=== PATIENT | female | born 1930 | race Caucasian/White ===

== ENCOUNTER 2017-12-06 09:06 | Outpatient (CLI) | payer MEDICARE | END 2017-12-06 09:07 | disposition home or self-care (01) | LOC: BICMAMMO 09:06 | PROVIDERS: ATTEND Obstetrics & Gynecology | DX: Z12.31 Encounter for screening mammogram for malignant neoplasm of breast (principal); Z80.3 Family history of malignant neoplasm of breast | CPT/HCPCS: 77063; 77067 ==

== ENCOUNTER 2019-01-15 21:51 | Emergency (ER) | payer MEDICARE ==
[2019-01-15] MEDS ORDERED: hydrALAZINE 20 MG/ML VIAL ONE (23:24)
[2019-01-15] MEDS ORDERED: Ondansetron PF 4 MG/2 ML Vial ONE (23:44)
== END 2019-01-16 00:05 | disposition home or self-care (01) ==
LOC: ERS 21:51
DX: I10 Essential (primary) hypertension (principal); E03.9 Hypothyroidism, unspecified; F41.9 Anxiety disorder, unspecified
CPT/HCPCS: 96374; 96375; J0360; J2405

== ENCOUNTER 2019-02-02 09:13 | Observation (INO) | payer MEDICARE ==
--- NOTE | 2019-02-02 09:51 | RAD ---
Exam: Chest one view HISTORY:Tachycardia Comparison: None FINDINGS: Lungs: No masses or consolidation. Cardiac silhouette:Accentuated by portable technique Pulmonary vessels: Normal Pleural Spaces: Clear Pneumothorax: None Osseous abnormalities: None of acuity. IMPRESSION: No focal consolidation.
[2019-02-02 09:52] LABS: #Basophils 0.1 thou/uL (0.0-0.2); #Eosinphils 0.1 thou/uL (0.0-0.7); #Monocytes 0.5 thou/uL (0.11-0.59); #Neutrophils 4.7 thou/uL (1.40-6.50); %Eosinophils 1.8 % (0.0-10.0); %Lymphocytes 16.1 % (21.0-51.0); %Monocytes 8.1 % (0.0-10.0); Hemoglobin 14.2 g/dL (12.0-16.0); Mean Corpuscular HGB CONC 32.6 g/dL (32.0-36.0); Mean Platelet Volume 7.6 fL (7.4-10.4); Platelet Count 251 thou/uL (130-400); RBC Distribution Width 12.7 % (11.5-14.5); Red Blood Cell (RBC) Count 4.58 mill/uL (4.20-5.40); White Blood Cell (WBC) Count 6.4 thou/uL (4.8-10.8)
[2019-02-02 10:09] LABS: ALT (SGPT) 31 U/L (8-55); AST (SGOT) 26 U/L (5-34); Albumin 4.3 g/dL (3.4-4.8); Alkaline Phosphatase 77 U/L (40-150); Anion Gap 13 mmol/L (10-20); BUN (Urea Nitrogen) 11 mg/dL (9.8-20.1); Bilirubin, Total 1.4 mg/dL (0.2-1.2); CK (CPK) 78 U/L (29-168); Calc. Creatinine Clearance 0 mL/min (70-130); Calcium 9.4 mg/dL (7.8-10.44); Carbon Dioxide 26 mmol/L (23-31); Chloride 102 mmol/L (98-107); Estimated GFR-MDRD 64; Glucose 101 mg/dL (83-110); Potassium 3.7 mmol/L (3.5-5.1); Protein, Total 7.3 g/dL (6.0-8.3); Sodium 137 mmol/L (136-145)
[2019-02-02] MEDS ORDERED: Aspirin Chewable 81 MG TAB ONE (11:01)
[2019-02-02] MEDS ORDERED: Nitroglycerin 2% Ointment 1 INCH/1 GM Packet ONE (11:01)
[2019-02-02] MEDS ORDERED: Nitroglycerin 0.4 MG TAB (25 Tab Bottle) PO PRN (11:27)
--- NOTE | 2019-02-02 12:14 | HP ---
PRIMARY CARE PROVIDER: Dr. Almita Cole. CHIEF COMPLAINT: "Heart pounding." HISTORY OF PRESENT ILLNESS: Ms. Barakat is a pleasant 88-year-old lady, who was seen at [facility] on February 02, 2019. She reports that over the last one month she has had elevated blood pressure. Her blood pressure medications were being adjusted, but her blood pressure continued to be high. She came to the emergency room on January 15, 2019, because of elevated blood pressure. At that time, she received intravenous hydralazine and was discharged home. She continued to have elevated blood pressure. Her latest blood pressure regimen is lisinopril 40 mg daily and clonidine p.r.n. She woke up today morning and found that her blood pressure was 206/115. When EMS went to see the patient, her blood pressure was 202/132. She reports feeling unwell. She reports that she has a pounding heartbeat, but denies any rapid heartbeat. She denies any vomiting. She reports feeling tense and nervous. REVIEW OF SYSTEMS: All other systems reviewed and found to be negative. PAST MEDICAL HISTORY: 1. Hypertension. 2. Hypothyroidism. PAST SURGICAL HISTORY: Cataract surgery, hysterectomy. PSYCHIATRIC HISTORY: Anxiety. SOCIAL HISTORY: The patient denies tobacco use. She drinks half a glass of wine daily. She denies any recreational drug use. CODE STATUS: She is full code. Her nephew Luis Manuel Gonzalez is her surrogate decision maker. ALLERGIES: NO KNOWN DRUG ALLERGIES. CURRENT MEDICATIONS: 1. Clonidine 0.1 mg as needed. 2. Lisinopril 40 mg daily. PHYSICAL EXAMINATION: GENERAL: Ms. Barakat is awake and alert, not in acute distress. VITAL SIGNS: Blood pressure is 181/96, pulse 97, respiratory rate 20, and oxygen saturation 96% on room air. She is afebrile. EYES: No scleral icterus, no conjunctival pallor. ENT: Moist mucosal membranes. No oropharyngeal erythema or exudates. NECK: Supple, nontender, trachea is midline. RESPIRATORY: Accessory muscles of breathing are not active. Chest wall movements are symmetric bilaterally. Lungs are clear to auscultation without wheeze, rhonchi, or crepitations. CARDIOVASCULAR: S1 and S2 are heard, irregular. Peripheral pulses palpable. No carotid bruit. No pericardial rub. ABDOMEN: Soft, nontender, bowel sounds heard, no hepatomegaly, no splenomegaly. NEUROLOGIC: Cranial nerves 2 through 12 are intact. Deep tendon reflexes 2+. MUSCULOSKELETAL: Power is 5/5 in all four extremities. SKIN: No rashes or subcutaneous nodules. LYMPHATIC: No cervical lymphadenopathy. PSYCHIATRIC: Normal mood, normal affect, the patient is oriented to person, place, and time. LABORATORY DATA: Ms. Barakat's labs and investigations were reviewed. I reviewed her electrocardiogram, which shows atrial fibrillation with premature ventricular complexes, no ST changes to suggest an acute coronary syndrome. I also reviewed her chest x-ray, did not show any pulmonary infiltrates. She has an unremarkable CBC, mildly elevated total bilirubin of 1.4, otherwise unremarkable comprehensive metabolic profile, elevated BNP of 461, and indeterminate troponin I of 0.044. ASSESSMENT AND PLAN: Ms. Barakat is a pleasant 88-year-old lady, who was seen at [facility] on February 02, 2019. Her problem list includes: 1. Hypertensive urgency: Ms. Barakat is presenting with hypertensive urgency. She will be admitted to the hospital. She will receive p.r.n. blood pressure medications. We will also add scheduled hydralazine to her medication regimen. 2. Atrial fibrillation: This appears to be new. We will check 2D echocardiogram. We will check TSH. We will consult Cardiology Service for opinion and help with management. 3. Hypothyroidism: We will resume patient's thyroid medications once clarified. As mentioned, we will check TSH. 4. Anxiety: We will resume the patient's home medications once clarified. Many thanks for allowing me to participate in your patient's care. Please feel free to contact me with any questions or concerns. 5. Elevated troponin: Patient denies any chest pain. Will recheck troponin. Will monitor on telemetry. LEVEL OF RISK: High. LEVEL OF COMPLEXITY: High. Job ID: [id number] [facility]
[2019-02-02] MEDS ORDERED: Ondansetron PF 4 MG/2 ML Vial IVP PRN (12:20)
[2019-02-02] MEDS ORDERED: Acetaminophen 325 MG TAB PO PRN (12:20)
[2019-02-02] MEDS ORDERED: Ondansetron ODT 4 MG TAB SL PRN (12:20)
[2019-02-02 13:10] LABS: Troponin I 0.048 ng/mL (< 0.028)
[2019-02-02 13:36] VITALS: BMI 20.8
[2019-02-02] MEDS: hydrALAZINE 25 MG TAB PO SCH ×3 (14:38→21:09)
[2019-02-02 16:22] LABS: Troponin I 0.049 ng/mL (< 0.028)
[2019-02-02] MEDS: Metamucil PACK PO SCH (18:25)
[2019-02-02] MEDS ORDERED: Nitroglycerin 2% Ointment 1 INCH/1 GM Packet TOP SCH (19:00)
[2019-02-02] MEDS: Enoxaparin Sodium 60 MG/0.6 ML SYRINGE SC SCH (21:10)
--- NOTE | 2019-02-02 21:52 | CON ---
DATE OF CONSULTATION: 02/02/2019 HISTORY: Sheree Barakat is an 88-year-old white female, patient of Dr. Ramsey. She has been having problems with control of her blood pressure recently. She apparently had hyponatremia on hydrochlorothiazide and her lisinopril/hydrochlorothiazide was changed to Lisinopril 20 qd. Ultimately, the lisinopril dose had to be increased to 40 mg. She also apparently was taking metoprolol 25 mg nightly. She has never been told that she had atrial fibrillation in the past. She did go to emergency room for elevated blood pressure on 01/15, and I was able to pull the EKG up in the computer system, and she was in atrial fibrillation at that time, but not with fast ventricular response. Sometime after that ER visit, she was told to stop the metoprolol because she was having some visual hallucinations, and it was thought that the metoprolol may be the culprit. However, after being off that medication for 2 weeks, she continues to have the same type of visual hallucinations. When she got up this morning, blood pressure was 206/115 and she called paramedics, and she was brought to the emergency room. She denies any palpitations. She denies any chest discomfort or shortness of breath. PAST MEDICAL HISTORY: 1. Hypertension. 2. Hypothyroidism. OPERATIONS: 1. Cataract surgery. 2. Hysterectomy. PSYCHIATRIC HISTORY: She has history of anxiety, which seems to aggravate her blood pressure. SOCIAL HISTORY: She does not smoke. She drinks some wine daily. MEDICATIONS: 1. Clonidine 0.1 mg b.i.d. p.r.n. 2. Synthroid 50 mcg daily. 3. Lisinopril 40 mg daily. 4. Metoprolol 25 XL nightly, (she apparently is not taking this). 5. Metamucil. ALLERGIES: NONE. REVIEW OF SYSTEMS: A 10-point review of systems is otherwise unremarkable. PHYSICAL EXAMINATION: VITAL SIGNS: Blood pressure 133/78, pulse of 101 and irregularly irregular. HEENT: PERRL. NECK: Supple. CHEST: Clear. CARDIAC: S1 and S2 normal without any S3, S4, or murmurs. Carotid upstrokes normal without bruits. ABDOMEN: Normal bowel sounds without tenderness or organomegaly. EXTREMITIES: No clubbing, cyanosis, or edema. NEUROLOGIC: Grossly intact. SKIN: Warm and dry. LABORATORY DATA: EKG reveals atrial fibrillation with PVCs and poor R-wave progression. On the monitor, she does have episodes that her heart rate goes up to 130 per minute. CBC is unremarkable. Sodium 137, potassium 3.7, chloride 102, carbon dioxide 26, BUN 11, and creatinine 0.82. Troponin-I 0.048. BNP 461.4. TSH is normal. IMPRESSION: 1. Atrial fibrillation, which at times there is poor control of the rate. She also was in atrial fibrillation on 01/15, when she was in the emergency room, but her rate was controlled. 2. Hypertension, difficult to control recently. 3. History of hyponatremia, which apparently improved with discontinuation of hydrochlorothiazide. 4. Visual hallucinations, which I doubt they are due to metoprolol since this seems to continue despite being off metoprolol for several weeks. 5. Demand ischemia. PLAN: The patient will be started on a beta-xander/metoprolol 50 XL nightly. Echocardiogram will be performed to assess left ventricular function. Consideration should also be given to anticoagulation. With her weight and age, appropriate dose would be Eliquis 2.5 mg b.i.d. It does not sound that she has frequent falling , but did have a fall 1 year ago. Job ID: [id number] [facility]
[2019-02-03] MEDS ORDERED: Aspirin 325 mg Enteric Coated Tablet PO SCH (09:00)
[2019-02-03] MEDS: hydrALAZINE 25 MG TAB PO SCH ×3 (09:20→18:36)
[2019-02-03] MEDS: Enoxaparin Sodium 60 MG/0.6 ML SYRINGE SC SCH (09:20)
[2019-02-03] MEDS: Metamucil PACK PO SCH ×3 (09:20→18:36)
--- NOTE | 2019-02-03 19:49 | PRG ---
DATE OF SERVICE: 02/03/2019 SUBJECTIVE: Ms. Barakat is a pleasant 88-year-old female with past medical history significant for hypertension and hypothyroidism, who presented to the hospital with complaints of heart pounding and racing, along with elevated blood pressure. The patient has been admitted with atrial fibrillation with RVR and accelerated hypertension. Her home dose of metoprolol has been restarted, she has been seen in consultation with Dr. Ruiz. Per telemetry, her rates have been controlled. Her blood pressure is also now well controlled, and her presenting complaints have resolved. This morning, the patient feels well. She denies any palpitations, shortness of breath, or chest pains. She denies any nausea or vomiting. OBJECTIVE: VITAL SIGNS: Pulseis 72, blood pressure 124/72. The patient afebrile 97.8 F, O2 saturation is 96% on room air. GENERAL: The patient is a well-appearing female, in no acute distress. HEENT: Head; atraumatic, normocephalic. Mucous membranes are moist. NECK: No lymphadenopathy. No JVD. No carotid bruits. CV: S1, S2, irregular, no appreciable murmurs, rubs, or gallops. LUNGS: Regular respiratory rate and pattern. Clear to auscultation bilaterally. ABDOMEN: Positive bowel sounds. Nontender. No guarding or rebound, soft. No organomegaly. SKIN: Warm and dry. No rashes. EXTREMITIES: +2 DP pulses bilaterally, warm, well perfused. No edema. NEUROLOGIC: Cranial nerves 2 through 12 are intact. The patient is nonfocal. LABORATORY DATA: From 02/02/2019, hemoglobin 14.2, hematocrit 43.5, platelet 251, white blood cell count 6.4. Sodium 137, potassium 3.7, BUN 11, creatinine 0.84. AST, ALT, and alkaline phosphatase all within normal limits. Troponin 0.044 and 0.049 respectively. BNP was 461. TSH normal at 2.28. ASSESSMENT: 1. Atrial fibrillation, sustained, likely chronic, now rate controlled. CHADS-VASc equals 4. 2. Accelerated hypertension, resolved. 3. History of hallucinations, unknown etiology, appeared resolved. 4. Hypertension. 5. History of hypothyroidism with normal TSH. PLAN: We will continue rate control with beta xander, her blood pressure is now under good control. She is currently anticoagulated with Lovenox. We will await Cardiology recommendations regarding initiation of factor Xa inhibitor for anticoagulation. Her echocardiogram is pending, although she has elevated BNP. She has no symptoms of CHF at this time. We will await final Cardiology recommendations. Anticipate discharge in the near future. Job ID: [id number]
[2019-02-03 20:05] VITALS: BP 163/77; TEMP 98.1
[2019-02-03] MEDS ORDERED: Apixaban 2.5 MG TAB PO SCH (21:00)
--- NOTE | 2019-02-04 08:51 | DIS ---
DATE OF ADMISSION: 02/02/2019 DATE OF DISCHARGE: 02/03/2019 ALLERGIES: NO KNOWN DRUG ALLERGIES. CHIEF COMPLAINT: "Heart pounding and high blood pressure." FINAL DIAGNOSES: 1. Atrial fibrillation, sustained, likely chronic, now rate controlled. CHADS-VASc equals 4, asymptomatic. 2. Accelerated hypertension, resolved. 3. History of hallucinations, unknown etiology, resolved. 4. Hypertension. 5. History of hypothyroidism with normal TSH. PROCEDURES PERFORMED: None. LABORATORY RESULTS: Hemoglobin 14.2, hematocrit 43.5, platelets 251, white blood cell count 6.4. Sodium 137, potassium 3.7, BUN 11, creatinine 0.84. AST, ALT, and alkaline phosphatase all within normal limits. Troponin 0.044 and 0.049 respectively. BNP was 471. TSH normal at 2.28. IMAGING RESULTS: Transthoracic echocardiogram pending. Chest x-ray, no focal consolidation. CONSULTATION: Dr. Ruiz of Cardiology. VITAL SIGNS: Blood pressure 124/72, 126/73, 163/77; pulse 72; patient afebrile; temperature 98.1; respirations 16; O2 saturation 97% on room air. HOSPITAL COURSE: The patient is a very pleasant 88-year-old female with past medical history significant for hypertension, hypothyroidism, who presented to the hospital with complaints of heart pounding and racing along with elevated blood pressure. The patient also came to the emergency room on January 15, 2019, because of elevated blood pressure. At that time, she received IV hydralazine and was discharged home. Her blood pressure medications have continued to be titrated by her primary care doctor. She was taken off her HCTZ, secondary to hyponatremia, her lisinopril was increased. Her metoprolol was decreased at some point secondary to presumed hallucinations from this medication. On arrival to the ER on February 02, 2019, the patient's blood pressure was significantly elevated with reading of 202/132. She was also found to be in atrial fibrillation with RVR at that time. The patient was admitted for further workup and treatment. The patient was seen in consultation with Dr. Ruiz. Per further review of EKGs, it was found that the patient was also in atrial fibrillation, sustained with controlled ventricular rate on her visit on January 15, 2019. Her metoprolol was reinstated with good control of her heart rate and blood pressure. Dr. Ruiz recommended anticoagulation due to her elevated CHADS-VASc score, and she was started on Eliquis 2.5 mg b.i.d. The patient states that she feels much improved. She states that her hallucinations have completely resolved. She has no chest pain, shortness of breath, or palpitations. Her blood pressure has been well controlled through this hospitalization with systolic readings in the 120s. Per Dr. Ruiz, who saw her on the evening of February 03, 2019, the patient was safe for discharge with followup with her primary care doctor, Dr. Ramsey. PHYSICAL EXAMINATION: GENERAL: The patient is a well-appearing elderly female, in no acute distress. HEENT: Head, atraumatic and normocephalic. Mucous membranes are moist. NECK: No lymphadenopathy. No JVD. No carotid bruits. CV: S1 and S2. Rate regular. No appreciable murmurs, rubs, or gallops. LUNGS: Regular respiratory rate and pattern. Clear to auscultation bilaterally. ABDOMEN: Positive bowel sounds. Nontender. No guarding or rebound. Soft. No organomegaly. SKIN: Warm and dry. No rashes. EXTREMITIES: +2 DP pulses bilaterally. Warm and well perfused. No edema. NEUROLOGIC: Cranial nerves 2 through 12 are intact. The patient is nonfocal. CONDITION ON DISCHARGE: Stable. DISCHARGE MEDICATIONS: The patient will continue: 1. Clonidine 0.1 mg tab p.o. p.r.n. elevated blood pressure greater than 160s. 2. Levothyroxine 50 mcg tab one tab daily. 3. Lisinopril 40 mg tab one tab daily. 4. Metamucil 822 g p.o. t.i.d. New medications will include: 1. Apixaban 2.5 mg one tab p.o. b.i.d. 2. Metoprolol succinate 50 mg tab one tab p.o. q.h.s. DISCHARGE DISPOSITION: Home. PLAN: As mentioned, the patient has been cleared by Dr. Ruiz for discharge tonight. She will continue Eliquis. She is not a fall risk and has had no falls recently. She will follow up with her primary care physician, Dr. Ramsey. All findings have been discussed with the patient including risk of stroke given sustained atrial fibrillation and the importance of continued anticoagulation therapy. . Job ID: [id number]
--- NOTE | 2019-02-05 02:30 | DIS ---
DATE OF ADMISSION: 02/02/2019 DATE OF DISCHARGE: 02/03/2019 ALLERGIES: NO KNOWN DRUG ALLERGIES. CHIEF COMPLAINT: High blood pressure and "heart pounding". FINAL DIAGNOSES: 1. Atrial fibrillation with RVR, now rate controlled. CHADS-VASc equals 4, chronic. 2. Accelerated hypertension, resolved. 3. History of hallucinations, unknown etiology, resolved. 4. History of hypothyroidism with normal TSH. PROCEDURES PERFORMED: None. LABORATORY RESULTS: Hemoglobin 14.2, hematocrit 43.5, platelet 251, white blood cell count 6.4. Sodium 137, potassium 3.7, BUN 11, creatinine 0.84. AST, ALT, and alkaline phosphatase all within normal limits. Troponin 0.044 and 0.049 respectively. BNP was 461. TSH normal at 2.28. IMAGING RESULTS: Echo pending at the time of discharge. Chest x-ray, no focal consolidations, no masses. CONSULTATIONS: Dr. Ruiz. VITAL SIGNS: Blood pressure 124/72, pulse is 72, O2 saturation 97% on room air, temperature 98.1. HOSPITAL COURSE: The patient is a pleasant 88-year-old female who is followed by Dr. Ramsey. She presented to the hospital with complaints of high blood pressure with systolic readings at home of over 200 as well as sensation of her heart pounding. Apparently, the patient has been battling some blood pressure issues prior to her arrival to the ED. Secondary to hyponatremia, her hydrochlorothiazide had been stopped and her lisinopril increased from 20 to 40. The patient was also taking metoprolol succinate 25 mg nightly; however, this was stopped because the patient thought it was causing some hallucinations. She was treated at our facility on January 15 for hypertension, and was given IV hydralazine with good response in her blood pressure and then discharged from the ER. EKG at that time did show sustained atrial fibrillation with controlled rates. Her metoprolol was discontinued at that ER visit. In any case, when the patient presented to the hospital for this administration, she was indeed in atrial fibrillation with RVR. She was seen in consultation with Dr. Ruiz, who did restart metoprolol. Her heart rate became well controlled with ventricular rates in the 70s and 80s. She also had a good response in her blood pressure with the majority of the readings during her hospitalization in the 120s. She denied any chest pain or shortness of breath throughout her stay. She states that her previous hallucinations did not return. She was started on anticoagulation with Eliquis 2.[address] Ruiz as well. The patient's presenting symptoms of palpitations and pounding heart have all resolved. She has been cleared by Cardiology for discharge. PHYSICAL EXAMINATION: GENERAL: The patient is well-appearing female, in no acute distress. HEENT: Head is atraumatic and normocephalic. Mucous membranes are moist. NECK: No lymphadenopathy. No JVD. No carotid bruits. CV: S1 and S2. Irregularly irregular. No appreciable murmurs, rubs, or gallops. LUNGS: Regular respiratory rate and pattern. Clear to auscultation bilaterally. ABDOMEN: Positive bowel sounds. Nontender. No guarding or rebound. Soft. No organomegaly. SKIN: Warm and dry. No rashes. EXTREMITIES: +2 DP pulses bilaterally. Warm and well perfused. No edema. NEUROLOGIC: Cranial nerves II through XII intact. The patient is nonfocal. She is alert and oriented x3. CONDITION ON DISCHARGE: Stable. DISCHARGE MEDICATIONS: New medications will be, 1. Apixaban 2.5 mg p.o. b.i.d. 2. Metoprolol succinate 50 mg p.o. at bedtime. She will continue, 1. Lisinopril 40 mg daily. 2. Levothyroxine 50 mcg p.o. daily. 3. Clonidine 0.1 mg p.o. b.i.d. p.r.n. elevated blood pressure. 4. We will also continue Metamucil as needed. DISCHARGE DISPOSITION: Home. PLAN: The patient will continue her Eliquis and metoprolol as prescribed. I have explained the nature of atrial fibrillation and her elevated stroke risk, and she agrees to anticoagulation at this time. She is not deemed a fall risk at this time. She will follow up with her primary care physician, Dr. Ramsey. At the time of the discharge, her echocardiogram was not yet available, but at the time of my dictation, review of echocardiogram shows normal left ventricular systolic function with EF 50% to 55% and mild diastolic dysfunction. No Followup with Cardiology needed at this time per Dr. Ruiz. She will continue to monitor her blood pressure at home and follow up with her PCP. Care discussed with Dr. Lawson who agrees with the above. Job ID: [id number]
== END 2019-02-03 20:03 | disposition home or self-care (01) ==
LOC: ERS 09:13 → 2SW 11:53
PROVIDERS: ADMIT Internal Medicine; ATTEND Internal Medicine
DX: I48.91 Unspecified atrial fibrillation (principal); I16.0 Hypertensive urgency; I10 Essential (primary) hypertension; E03.9 Hypothyroidism, unspecified; F41.9 Anxiety disorder, unspecified; I24.8 Other forms of acute ischemic heart disease; R44.1 Visual hallucinations; Z79.01 Long term (current) use of anticoagulants; Z79.899 Other long term (current) drug therapy
CPT/HCPCS: 71045; 82550; 82553; 83880; 84484 ×2; 93005; 93306; 96372 ×2; 99285; G0378 ×2; 36415; 80053; 84443; 85025; J1650

== ENCOUNTER 2019-02-11 17:57 | Emergency (ER) | payer MEDICARE, OTHER ==
[2019-02-11 18:23] LABS: #Basophils 0.1 thou/uL (0.0-0.2); #Eosinphils 0.5 thou/uL (0.0-0.7); #Lymphocytes 0.9 thou/uL (1.20-3.40); #Monocytes 0.8 thou/uL (0.11-0.59); #Neutrophils 6.9 thou/uL (1.40-6.50); %Basophils 1.1 % (0.0-1.0); %Eosinophils 5.1 % (0.0-10.0); %Lymphocytes 9.9 % (21.0-51.0); %Monocytes 9.2 % (0.0-10.0); %Neutrophils 74.7 % (42.0-75.0); Hemoglobin 14.1 g/dL (12.0-16.0); Mean Corpuscular HGB CONC 32.7 g/dL (32.0-36.0); Mean Corpuscular Hemoglobin 30.5 pg (27.0-31.0); Mean Corpuscular Volume 93.3 fL (78.0-98.0); Mean Platelet Volume 7.2 fL (7.4-10.4); Platelet Count 325 thou/uL (130-400); Red Blood Cell (RBC) Count 4.63 mill/uL (4.20-5.40); White Blood Cell (WBC) Count 9.2 thou/uL (4.8-10.8)
[2019-02-11 18:42] LABS: ALT (SGPT) 65 U/L (8-55); AST (SGOT) 43 U/L (5-34); Albumin 3.9 g/dL (3.4-4.8); Alkaline Phosphatase 98 U/L (40-150); Anion Gap 13 mmol/L (10-20); BUN (Urea Nitrogen) 13 mg/dL (9.8-20.1); Bilirubin, Total 1.3 mg/dL (0.2-1.2); CK (CPK) 85 U/L (29-168); Calc. Creatinine Clearance 0 mL/min (70-130); Calcium 8.6 mg/dL (7.8-10.44); Carbon Dioxide 20 mmol/L (23-31); Chloride 97 mmol/L (98-107); Estimated GFR-MDRD 67; Globulin 2.6 g/dL (2.4-3.5); Glucose 116 mg/dL (83-110); Potassium 4.2 mmol/L (3.5-5.1); Protein, Total 6.5 g/dL (6.0-8.3); Sodium 126 mmol/L (136-145)
--- NOTE | 2019-02-11 18:58 | RAD ---
Radiograph chest 2 views: 02/11/2019 at 6:38 PM HISTORY: 80-year-old female with tachycardia and hypertension. COMPARISON: 1. View study of 02/02/2019 FINDINGS: There is a new finding of dense opacification of the lower 20-35% of the right lung with complete lata houetting of the right hemidiaphragm and silhouetting of most of the right cardiac border. There is mild cardiomegaly. There is a contralateral small left pleural effusion, also new. The bilateral uppe r lung zones are clear. No consolidation at the left base. No pneumothorax. No pulmonary edema. IMPRESSION: 1. New finding of opacification of significant portion of right lower lobe and right middle lobe. Thi s probably represents a combination of consolidation (pneumonia versus atelectasis) and right pleural effusion. 2. New small left pleural effusion. 3. Cardiomegaly without overt congestive heart failure.
[2019-02-11] MEDS ORDERED: cefTRIAXone\\ROCEPHIN 1 GM VIAL ONE (22:37)
[2019-02-12] MEDS ORDERED: Metoprolol Tartrate 50 MG TAB ONE ×2 (00:23)
== END 2019-02-12 01:11 | disposition home or self-care (01) ==
LOC: ERS 17:57
DX: J18.9 Pneumonia, unspecified organism (principal); E87.1 Hypo-osmolality and hyponatremia; E03.9 Hypothyroidism, unspecified; I10 Essential (primary) hypertension; F41.9 Anxiety disorder, unspecified
CPT/HCPCS: 36415; 71046; 80053; 82550; 83880; 84484; 85025; 87040; 93005; 94760; 96365; J0696

== ENCOUNTER 2019-02-17 06:05 | Inpatient (IN) | payer MEDICARE, OTHER ==
[2019-02-17 06:33] LABS: #Basophils 0.1 thou/uL (0.0-0.2); #Eosinphils 0.3 thou/uL (0.0-0.7); #Lymphocytes 1.2 thou/uL (1.20-3.40); #Monocytes 0.8 thou/uL (0.11-0.59); #Neutrophils 6.7 thou/uL (1.40-6.50); %Basophils 0.8 % (0.0-1.0); %Eosinophils 2.9 % (0.0-10.0); %Lymphocytes 13.6 % (21.0-51.0); %Monocytes 9.2 % (0.0-10.0); %Neutrophils 73.5 % (42.0-75.0); Hemoglobin 15.1 g/dL (12.0-16.0); Mean Corpuscular HGB CONC 33.9 g/dL (32.0-36.0); Mean Corpuscular Hemoglobin 31.2 pg (27.0-31.0); Mean Corpuscular Volume 92.2 fL (78.0-98.0); Mean Platelet Volume 7.1 fL (7.4-10.4); Platelet Count 307 thou/uL (130-400); RBC Distribution Width 13.3 % (11.5-14.5); Red Blood Cell (RBC) Count 4.82 mill/uL (4.20-5.40); White Blood Cell (WBC) Count 9.1 thou/uL (4.8-10.8)
[2019-02-17 06:56] LABS: ALT (SGPT) 37 U/L (8-55); AST (SGOT) 30 U/L (5-34); Albumin 3.7 g/dL (3.4-4.8); Alkaline Phosphatase 77 U/L (40-150); Anion Gap 15 mmol/L (10-20); BUN (Urea Nitrogen) 14 mg/dL (9.8-20.1); Bilirubin, Total 1.2 mg/dL (0.2-1.2); Calc. Creatinine Clearance 0 mL/min (70-130); Calcium 8.5 mg/dL (7.8-10.44); Carbon Dioxide 19 mmol/L (23-31); Chloride 91 mmol/L (98-107); Estimated GFR-MDRD 54; Globulin 2.4 g/dL (2.4-3.5); Glucose 106 mg/dL (83-110); Lipase 11 U/L (8-78); Potassium 4.1 mmol/L (3.5-5.1); Protein, Total 6.1 g/dL (6.0-8.3); Sodium 121 mmol/L (136-145)
[2019-02-17] MEDS ORDERED: Aspirin Chewable 81 MG TAB ONE (07:16)
[2019-02-17] MEDS ORDERED: Furosemide 40 MG/4 ML VIAL ONE ×2 (07:16→14:17)
--- NOTE | 2019-02-17 07:20 | RAD ---
Chest AP view INDICATION: History of nausea and pneumonia COMPARISON: Prior chest radiograph dated February 11, 2019 FINDINGS: Lungs:There is worsening opacity within the right lung base. Small left basilar atelectasis remains. Cardiac silhouette pulmonary vasculature:Moderate cardiomegaly and mild pulmonary vascular congestion persists. Pleural spaces:There is worsening moderate right and stable small left pleural effusion. No pneumotho rax is evident. Upper abdomen:No abnormality seen. Osseous structures: No acute osseous abnormality. IMPRESSION: Worsening moderate right and small left pleural effusion with worsening right basilar opa city which may reflect worsening pneumonia or atelectasis. Recommend correlation with the clinical examination. CT evaluation may be helpful for additional characterization. Mild left basilar atelecta sis is stable. The cardiomegaly and pulmonary vascular congestion suggestive of underlying CHF is stable to the comparison dated 02/11/2019.
[2019-02-17 07:28] LABS: CKMB 8.8 ng/mL (0-6.6)
[2019-02-17 08:23] LABS: Bilirubin Negative (Negative); Blood, Urine Negative (Negative); Clarity CLEAR (Clear); Glucose, Urine (Dipstick) Negative (Negative); Leukocyte Negative (Negative); Nitrite Negative (Negative); Protein, Urine (Dipstick) Negative (Neg-Trace); Specific Gravity, Urine 1.014 (1.002-1.036); Urobilinogen 0.2 mg/dL (0.2-1.0); pH, Urine 5.5 (5.0-9.0)
--- NOTE | 2019-02-17 11:54 | PDOC.FPRHP ---
- History of Present Illness Chief Complaint: "feeling tired" for 5 days History of Present Illness: 88F seen today for fatigue x5 days. Patient was seen 6 days ago at ER for fatigue. She was found to have pneumonia. It was recommended that she be admitted for treatment. Patient refused and so was given ceftriaxone in ER and went home on levaquin. She continues to feel worse with new symptom of cough, SOB. She returned to ER for reevaluation as she was not improving. Associated symptom include new LE edema, gain of about 9 lb in a month. Not relieved by anything. Exacerbated by activity. She specifically denies fever, chest pain, nausea, vomiting, recent travel. ED Course: At this ER visit, has received aspirin 81 mg, lasix 40 mg IV. - Allergies/Adverse Reactions Allergies Allergy/AdvReac Type Severity Reaction Status Date / Time No Known Drug Allergies Allergy Verified 02/02/19 11:24 - Home Medications Medication Instructions Recorded Confirmed Type Levothyroxine Sodium [Synthroid] 50 mcg PO DAILY 02/02/19 02/02/19 History Lisinopril 40 mg PO DAILY 02/02/19 02/02/19 History Psyllium Husk (With Sugar) 822 gm PO TID 02/02/19 02/02/19 History [Metamucil Free Powder] cloNIDine [Catapres] 0.1 mg PO BID PRN 02/02/19 02/02/19 History Apixaban [Eliquis] 2.5 mg PO BID #60 tab 02/03/19 Rx Metoprolol Succinate [Toprol XL] 50 mg PO HS #30 tab 02/03/19 Rx - History PMHx:Hypothyrodism, HTN, anxiety PSHx: Cataract removal, hysterectomy FHx: HTN, ACS Social:Denies drug, tobacco use. Drinks 1/2 glass wine at lunch. Lives independently at home by self. - Review of Systems General: reports: weight/appetite/sleep changes (Endorse eating less protein, more bread), fatigue. denies: fever/chills Eyes: denies: vision changes ENT: denies: nasal congestion Respiratory: reports: cough, shortness of breath, exercise intolerance Cardiovascular: reports: palpitation (Occasional palpitation, none at moment), edema, orthopnea. denies: chest pain Gastrointestinal: reports: nausea. denies: vomiting, diarrhea, constipation, abdominal pain Skin: denies: rashes, itching Neurological: reports: weakness. denies: syncope Psychological: reports: anxiety - Vital signs BP: [163/107] HR: [79] RR: 18 Tmax: [97,4] Pox: [96]% on [RA] Wt: [54.4 kg] - Physical Exam Constitutional: NAD, awake, alert and oriented -Constitutional: Thin HEENT: normocephalic and atraumatic, conjunctiva clear, no scleral icterus, grossly normal vision, normal nasal mucosa -HEENT: Mildly decreased hearing Neck: supple, trachea midline Heart: RRR, normal S1/S2, no murmurs/rubs/gallops -Heart: 2+ pitting edema in anders Lungs: CTAB, no respiratory distress, good air movement -Lungs: Mild crackles present in all lung field, Abdomen: soft, non-tender, bowel sounds present Neurological: no focal deficit, normal sensation Heme/Lymphatic: no unusual bruising or bleeding, no purpura, no petechia Psychiatric: normal mood and affect, good judgment and insight, intact recent and remote memory FMR H&P: Results - Labs Result Diagrams: 02/17/19 06:27 02/17/19 06:27 Lab results: WBC 9.1 thou/uL (4.8-10.8) 02/17/19 06:27 Hgb 15.1 g/dL (12.0-16.0) 02/17/19 06:27 Hct 44.5 % (36.0-47.0) 02/17/19 06:27 MCV 92.2 fL (78.0-98.0) 02/17/19 06:27 Plt Count 307 thou/uL (130-400) 02/17/19 06:27 Neutrophils % 73.5 % (42.0-75.0) 02/17/19 06:27 Sodium 121 mmol/L (136-145) L 02/17/19 06:27 Potassium 4.1 mmol/L (3.5-5.1) 02/17/19 06:27 Chloride 91 mmol/L (98-107) L 02/17/19 06:27 Carbon Dioxide 19 mmol/L (23-31) L 02/17/19 06:27 BUN 14 mg/dL (9.8-20.1) 02/17/19 06:27 Creatinine 0.98 mg/dL (0.6-1.1) 02/17/19 06:27 Glucose 106 mg/dL (83-110) 02/17/19 06:27 Calcium 8.5 mg/dL (7.8-10.44) 02/17/19 06:27 Total Bilirubin 1.2 mg/dL (0.2-1.2) 02/17/19 06:27 AST 30 U/L (5-34) 02/17/19 06:27 ALT 37 U/L (8-55) 02/17/19 06:27 Alkaline Phosphatase 77 U/L (40-150) 02/17/19 06:27 CK-MB (CK-2) 8.8 ng/mL (0-6.6) H* 02/17/19 06:27 B-Natriuretic Peptide 789.7 pg/mL (0-100) H 02/17/19 06:27 Serum Total Protein 6.1 g/dL (6.0-8.3) 02/17/19 06:27 Albumin 3.7 g/dL (3.4-4.8) 02/17/19 06:27 Lipase 11 U/L (8-78) 02/17/19 06:27 Urine Ketones Trace mg/dL (Negative) H 02/17/19 07:35 Urine Blood Negative (Negative) 02/17/19 07:35 Urine Nitrite Negative (Negative) 02/17/19 07:35 Ur Leukocyte Esterase Negative (Negative) 02/17/19 07:35 - EKG Interpretation EKG: A fib, rate controlled - Radiology Interpretation Other Status: image reviewed by me, report reviewed by me (CXR: Pulm congestion, pulm edema. Right LL, consolidation present.) FMR H&P: A/P - Problem List (1) Acute diastolic HF (heart failure), NYHA class 2 Current Visit: Yes Status: Acute Code(s): I50.31 - ACUTE DIASTOLIC ( CONGESTIVE) HEART FAILURE Assessment and Plan: May be part of patient's hyponatremia, secondary to fluid overload. Echo this year shows diastolic dysfunction. Patient has received lasix, out 1 L of urine. Plan to start on fluid restriction. (2) Hyponatremia with decreased serum osmolality Current Visit: Yes Status: Chronic Priority: High Code(s): E87.1 - HYPO- OSMOLALITY AND HYPONATREMIA Assessment and Plan: Likely chronic onset with documented hyponatremia on 02/11. Hypervolemic hyponatremia. Likely etiology includes HF, patient endorsing diet primarily bread. Currently symptomatic with fatigue but no other neurological changes. Plan, fluid restriction, diuresis. Goal of no more then 6-8 mEq change in next 24 hours. Educate on taking enough dietary solute. (3) Community acquired bacterial pneumonia Current Visit: Yes Status: Acute Code(s): J15.9 - UNSPECIFIED BACTERIAL PNEUMONIA Assessment and Plan: Known issue from previous ER visit. Not appear worse on cxr, no left shift or leukocytosis. Patient satting well on RA. Her SOB may be more related to fluid overload then pneumonia. Plan, continue with current levaquin. May consider legionella urine test as patient is also hyponatremic, but she has no risk factor such as recent travel or detention setting. (4) Elevated troponin Current Visit: Yes Status: Acute Code(s): R74.8 - ABNORMAL LEVELS OF OTHER SERUM ENZYMES Assessment and Plan: Patient noted to have elevated indeterminate trop on previous visit, though CKMB elevation is new EKG shows no new st changes. She denies chest pain, has afib, currently in CHF/ fluid overload. Likely demand. Would monitor at htis time. (5) HTN (hypertension) Current Visit: Yes Status: Chronic Code(s): I10 - ESSENTIAL (PRIMARY) HYPERTENSION Assessment and Plan: BP currently at near goal 150/90. Plan to restart home BP med. Consider holding cindy/arb while patient receiving lasix. (6) Atrial fibrillation with controlled ventricular rate Current Visit: Yes Status: Chronic Code(s): I48.91 - UNSPECIFIED ATRIAL FIBRILLATION Assessment and Plan: Chronic issue, patient on elliquis. Currently rate controlled, continuing elliquis. Patient had discussion where she is aware of anticoag bleeding risk. (7) Hypothyroidism Current Visit: Yes Status: Chronic Code(s): E03.9 - HYPOTHYROIDISM, UNSPECIFIED Assessment and Plan: On medication for hypothyroidism, but no recent TSH. Low on differential, but may consider obtaining TSH level as possible cause of hypothyroidism. - Plan Admit to Tele, inpatient status. FMR H&P: Upper Level - Pertinent history THIS A NOTE DONE AN ELECTIVE WITH SOUND PHYSICIAN. [facility] - Plan Date/Time: 02/17/19 1150 I have evaluated this patient and agree with findings/plan as outlined by graphics intern resident Colin Staley. I have interviewed and examined and discussed pt with resident and concur with his documented hx, PE and documentation. Bibasilar crackles on exam, CV S1, S2 irreg/irreg abd obese, + LE edema. Continue Lasix 40mg IV BID for Acute/chronic diast CHF, serial Na+ monitoring. Likely hyponatremia will correct with volume correction with diuretics. Continue anticoagulation with Eliquis.
[2019-02-17 12:00] LABS: Troponin I 0.031 ng/mL (< 0.028)
[2019-02-17] MEDS ORDERED: cloNIDine 0.1 MG TAB PO PRN (13:39)
[2019-02-17] MEDS ORDERED: Calcium Carbonate 500 MG ChewTAB PO PRN (13:39)
[2019-02-17] MEDS ORDERED: Ondansetron ODT 4 MG TAB PO PRN (13:39)
[2019-02-17 13:51] LABS: Troponin I 0.023 ng/mL (< 0.028)
[2019-02-17] MEDS ORDERED: Acetaminophen 325 MG TAB ONE (14:17)
[2019-02-17] MEDS: Furosemide 40 MG/4 ML VIAL SLOW IVP SCH (14:25)
[2019-02-17] MEDS: Acetaminophen 325 MG TAB PO PRN ×2 (14:26→20:33)
[2019-02-17 17:48] LABS: Anion Gap 18 mmol/L (10-20); BUN (Urea Nitrogen) 13 mg/dL (9.8-20.1); Calc. Creatinine Clearance 0 mL/min (70-130); Calcium 8.5 mg/dL (7.8-10.44); Carbon Dioxide 21 mmol/L (23-31); Chloride 90 mmol/L (98-107); Estimated GFR-MDRD 58; Glucose 98 mg/dL (83-110); Potassium 3.2 mmol/L (3.5-5.1); Sodium 126 mmol/L (136-145)
[2019-02-17] MEDS: Metamucil PACK PO SCH ×2 (18:28→20:33)
[2019-02-17] MEDS: Apixaban 2.5 MG TAB PO SCH (20:33)
[2019-02-17 23:03] LABS: Anion Gap 12 mmol/L (10-20); BUN (Urea Nitrogen) 14 mg/dL (9.8-20.1); Calc. Creatinine Clearance 31 mL/min (70-130); Calcium 8.2 mg/dL (7.8-10.44); Carbon Dioxide 27 mmol/L (23-31); Chloride 90 mmol/L (98-107); Estimated GFR-MDRD 47; Glucose 120 mg/dL (83-110); Sodium 126 mmol/L (136-145)
[2019-02-17 23:07] LABS: Potassium 2.9 mmol/L (3.5-5.1)
[2019-02-17] MEDS ORDERED: Potassium Chloride 20 MEQ TAB PO SCH (23:30)
[2019-02-18] MEDS ORDERED: Potassium Chloride 20 MEQ TAB PO SCH (01:30)
[2019-02-18] MEDS: Levothyroxine Sodium 50 MCG TAB PO SCH (05:46)
[2019-02-18] MEDS: Furosemide 40 MG/4 ML VIAL SLOW IVP SCH (05:46)
[2019-02-18 06:00] LABS: #Basophils 0.1 thou/uL (0.0-0.2); #Eosinphils 0.2 thou/uL (0.0-0.7); #Lymphocytes 0.9 thou/uL (1.20-3.40); #Neutrophils 6.6 thou/uL (1.40-6.50); %Basophils 0.7 % (0.0-1.0); %Eosinophils 2.5 % (0.0-10.0); %Lymphocytes 10.5 % (21.0-51.0); %Monocytes 11.3 % (0.0-10.0); Hemoglobin 14.8 g/dL (12.0-16.0); Mean Corpuscular HGB CONC 33.9 g/dL (32.0-36.0); Mean Corpuscular Hemoglobin 31.9 pg (27.0-31.0); Mean Platelet Volume 6.9 fL (7.4-10.4); Platelet Count 282 thou/uL (130-400); RBC Distribution Width 13.6 % (11.5-14.5); Red Blood Cell (RBC) Count 4.65 mill/uL (4.20-5.40); White Blood Cell (WBC) Count 8.8 thou/uL (4.8-10.8)
[2019-02-18 06:19] LABS: ALT (SGPT) 32 U/L (8-55); AST (SGOT) 25 U/L (5-34); Albumin 3.4 g/dL (3.4-4.8); Alkaline Phosphatase 73 U/L (40-150); Anion Gap 16 mmol/L (10-20); BUN (Urea Nitrogen) 13 mg/dL (9.8-20.1); Bilirubin, Total 1.4 mg/dL (0.2-1.2); Calc. Creatinine Clearance 32 mL/min (70-130); Calcium 8.2 mg/dL (7.8-10.44); Carbon Dioxide 22 mmol/L (23-31); Chloride 92 mmol/L (98-107); Estimated GFR-MDRD 51; Globulin 2.4 g/dL (2.4-3.5); Glucose 86 mg/dL (83-110); Potassium 4.3 mmol/L (3.5-5.1); Protein, Total 5.8 g/dL (6.0-8.3); Sodium 126 mmol/L (136-145)
[2019-02-18] MEDS: Apixaban 2.5 MG TAB PO SCH ×2 (09:33→20:25)
[2019-02-18] MEDS: Acetaminophen 325 MG TAB PO PRN (09:33)
[2019-02-18] MEDS: Metamucil PACK PO SCH ×3 (09:34→20:25)
[2019-02-18] MEDS: Lisinopril 20 MG TAB PO SCH (09:34)
--- NOTE | 2019-02-18 16:02 | CT ---
CT Chest WO Con HISTORY: Fever chills dyspnea loss of appetite. COMPARISON: 02/17/2019 chest x-ray. FINDINGS: A large right pleural effusion is seen with right lower lobe atelectasis. A small left pleu ral effusion is present. No lobar infiltrative process. No pulmonary nodules. No significant mediastinal adenopathy appreciated on this noncontrast study. Visualized liver parenchyma shows no focal findings. Right and left adrenal glands are normal. IMPRESSION: Large right pleural effusion effusion with a smaller left effusion and bibasilar atelecta sis.
--- NOTE | 2019-02-18 21:58 | PDOC.PN ---
- Subjective Encounter Start Date: 02/18/19 Encounter Start Time: 09:00 Subjective: pt up in bed states that she has not been eating much -: at home - Objective Resuscitation Status - Order Detail: 02/17/19 12:19 Resuscitation Status Routine Co-Sign Provider: Resuscitation Status: FULL: Full Resuscitation Discussed with: Patient Vital Signs & Weight: Vital Signs (12 hours) Temp Pulse Pulse Resp BP BP Pulse Ox 02/18/19 19:15 97.7 F 86 18 112/60 95 02/18/19 16:54 97.5 F L 77 16 122/56 L 96 02/18/19 14:15 89 113/58 L 02/18/19 11:57 97.8 F 72 18 128/60 95 Weight Weight 118 lb I&O: 02/17/19 02/18/19 02/19/19 06:59 06:59 06:59 Intake Total 680 700 Output Total 950 450 Balance -270 250 Result Diagrams: 02/18/19 04:54 02/18/19 04:54 Phys Exam - Physical Examination Neck: no nodes, no JVD, supple, full ROM Respiratory: no wheezing decrease breath sound to right lower lung area Cardiovascular: RRR, no significant murmur, no rub, gallop, irregular Gastrointestinal: soft, non-tender, no distention, positive bowel sounds Dx/Plan (1) Acute diastolic HF (heart failure), NYHA class 2 Code(s): I50.31 - ACUTE DIASTOLIC (CONGESTIVE) HEART FAILURE Status: Acute (2) Community acquired bacterial pneumonia Code(s): J15.9 - UNSPECIFIED BACTERIAL PNEUMONIA Status: Acute (3) HTN (hypertension) Code(s): I10 - ESSENTIAL (PRIMARY) HYPERTENSION Status: Chronic (4) Hyponatremia with decreased serum osmolality Code(s): E87.1 - HYPO-OSMOLALITY AND HYPONATREMIA Status: Chronic (5) Hypothyroidism Code(s): E03.9 - HYPOTHYROIDISM, UNSPECIFIED Status: Chronic (6) Moderate malnutrition Code(s): E44.0 - MODERATE PROTEIN-CALORIE MALNUTRITION Status: Acute - Plan pt finished a course of abx last week, ct chest large pleural effusion -: pt has not been eating much. urine electrolytes ordered not collected -: by staff. may need thoracentesis. PT ordered. will get nutrition to see pt -: pt was on hctz last admission which was discontiued. recent echo -: ef of 50-55% * . Review of Systems - Review of Systems Respiratory: Shortness of Breath Cardiovascular: negative: chest pain, palpitations, orthopnea, paroxysmal nocturnal dyspnea, edema, light headedness, other Gastrointestinal: negative: Nausea, Vomiting, Abdominal Pain, Diarrhea, Constipation, Melena, Hematochezia, Other - Medications/Allergies Allergies/Adverse Reactions: Allergies Allergy/AdvReac Type Severity Reaction Status Date / Time No Known Drug Allergies Allergy Verified 02/02/19 11:24 Medications: Current Medications Acetaminophen (Tylenol) 650 mg PO Q4H PRN PRN Reason: Headache/Fever/Mild Pain (1-3) Last Admin: 02/18/19 09:33 Dose: 650 mg Apixaban (Eliquis) 2.5 mg PO BID [facility] Last Admin: 02/18/19 20:25 Dose: 2.5 mg Calcium Carbonate (Tums) 1,000 mg PO Q4H PRN PRN Reason: Heartburn or Indigestion Clonidine (Catapres) 0.1 mg PO BID PRN PRN Reason: BLOOD PRESSURE Furosemide (Lasix) 40 mg SLOW IVP DAILY [facility] Levothyroxine Sodium (Synthroid) 50 mcg PO 0600 [facility] Last Admin: 02/18/19 05:46 Dose: 50 mcg Lisinopril (Zestril) 40 mg PO DAILY [facility] Last Admin: 02/18/19 09:34 Dose: 40 mg Metoprolol Succinate (Toprol Xl) 50 mg PO HS [facility] Last Admin: 02/18/19 20:25 Dose: 50 mg Ondansetron HCl (Zofran Odt) 4 mg PO Q6H PRN PRN Reason: Nausea/Vomiting Psyllium Hydrophilic Mucilloid (Metamucil) 1 pk PO TID [facility] Last Admin: 02/18/19 20:25 Dose: Not Given
[2019-02-19] MEDS: Levothyroxine Sodium 50 MCG TAB PO SCH (05:44)
[2019-02-19 07:24] LABS: #Basophils 0.1 thou/uL (0.0-0.2); #Eosinphils 0.4 thou/uL (0.0-0.7); #Lymphocytes 1.2 thou/uL (1.20-3.40); #Monocytes 0.9 thou/uL (0.11-0.59); %Basophils 1.2 % (0.0-1.0); %Eosinophils 4.7 % (0.0-10.0); %Lymphocytes 13.8 % (21.0-51.0); %Monocytes 9.9 % (0.0-10.0); %Neutrophils 70.4 % (42.0-75.0); Hemoglobin 14.3 g/dL (12.0-16.0); Mean Corpuscular Hemoglobin 31.7 pg (27.0-31.0); Mean Corpuscular Volume 93.2 fL (78.0-98.0); Mean Platelet Volume 6.8 fL (7.4-10.4); Platelet Count 277 thou/uL (130-400); RBC Distribution Width 13.5 % (11.5-14.5); White Blood Cell (WBC) Count 8.6 thou/uL (4.8-10.8)
[2019-02-19 07:44] LABS: ALT (SGPT) 25 U/L (8-55); AST (SGOT) 25 U/L (5-34); Albumin 3.5 g/dL (3.4-4.8); Alkaline Phosphatase 73 U/L (40-150); Anion Gap 13 mmol/L (10-20); BUN (Urea Nitrogen) 15 mg/dL (9.8-20.1); Bilirubin, Total 1.2 mg/dL (0.2-1.2); Calc. Creatinine Clearance 33 mL/min (70-130); Calcium 8.5 mg/dL (7.8-10.44); Carbon Dioxide 25 mmol/L (23-31); Chloride 91 mmol/L (98-107); Estimated GFR-MDRD 52; Globulin 2.3 g/dL (2.4-3.5); Glucose 106 mg/dL (83-110); Potassium 3.8 mmol/L (3.5-5.1); Protein, Total 5.8 g/dL (6.0-8.3); Sodium 125 mmol/L (136-145)
[2019-02-19] MEDS: Furosemide 40 MG/4 ML VIAL SLOW IVP SCH (08:56)
[2019-02-19] MEDS: Lisinopril 20 MG TAB PO SCH (08:57)
[2019-02-19] MEDS: Metamucil PACK PO SCH ×2 (09:00→14:00)
[2019-02-19 13:42] VITALS: BMI 20.9
--- NOTE | 2019-02-19 14:55 | PRG ---
DATE OF SERVICE: 02/19/2019 SUBJECTIVE: The patient reports she feels okay at the moment. Her primary concern is that she feels some discomfort prior to voiding and then she voids and the pain tends to feel better and then it recurs again on the next occasion. She feels like she is actually breathing quite comfortably. On talking to her today, she said she was never really terribly short of breath, just significantly fatigued and stated she was to the point she could not walk assisted across the room without becoming profoundly fatigued and her legs feeling weak, but denied feeling short of breath. OBJECTIVE: VITAL SIGNS: Temperature is 97.7, pulse 82, respirations 20, O2 saturation 96% on room air, BP 100/58. GENERAL APPEARANCE: Age-appropriate female, in no distress. She is awake, alert, oriented, pleasant, and cooperative. Her heart is regular and without murmurs. LUNGS: Clear bilaterally with no significant wheezes or rales. It does not sound diminished. ABDOMEN: Soft, nontender, and nondistended. Positive bowel sounds. EXTREMITIES: Slightly cool to touch. Diminished pulses, but present. No edema. LABORATORY DATA: White count 8.6, hemoglobin 14.3, platelets 277. Sodium 125, potassium 3.8, chloride 91, BUN 15, creatinine 1.0, glucose 106, AST 25, ALT 25, alkaline phosphatase 73, albumin 3.5. IMAGING STUDIES: Chest CT did reveal a large right pleural effusion, small left pleural effusion with basilar atelectasis. IMPRESSION AND PLAN: 1. Acute diastolic congestive heart failure. The patient has a preserved ejection fraction of 50% to 55%, but does have evidence of diastolic dysfunction on her echocardiogram. Her BNP is over 700, and she has a pleural effusion. She continues with diuresis. 2. Community-acquired bacterial pneumonia, recently diagnosed as an outpatient and treated as an outpatient. No significant evidence of large infiltrate at this time concerning that this may potentially be a parapneumonic effusion, although it is unclear if she is afebrile. She has a normal white count and not currently on any antibiotics and will not initiate any at this time. 3. Dysuria, possibly related to the diuretic. She also has a PureWick. We will check a bladder scan. 4. Large right pleural effusion. The patient has a history of atrial fibrillation and is on Eliquis that was held for the possibility that she may need a thoracentesis. She is not hypoxic, and she appears to be saturating well in general and it is unclear how much this effusion is contributing to her symptomatology. We will consult Pulmonary basically to ask a question whether this needs to be tapped. If not, we need to get her back on the Eliquis. 5. Hyponatremia, chronic and consistent with her previous readings. 6. Hypothyroidism with therapeutic TSH. 7. Hypertension, chronic state. The patient had significant hypertensive urgency at the time of admission that has resolved. 8. Atrial fibrillation. New onset again on Eliquis, currently well rate controlled. 9. Type 2 demand ischemia per Cardiology interpretation of her troponins. Job ID: [id number]
[2019-02-20] MEDS: Metamucil PACK PO SCH ×4 (02:09→20:38)
[2019-02-20 06:18] LABS: #Basophils 0.1 thou/uL (0.0-0.2); #Eosinphils 0.6 thou/uL (0.0-0.7); #Lymphocytes 1.3 thou/uL (1.20-3.40); #Neutrophils 5.5 thou/uL (1.40-6.50); %Basophils 1.1 % (0.0-1.0); %Lymphocytes 15.1 % (21.0-51.0); %Monocytes 11.9 % (0.0-10.0); %Neutrophils 64.9 % (42.0-75.0); Hemoglobin 14.3 g/dL (12.0-16.0); Mean Corpuscular HGB CONC 32.7 g/dL (32.0-36.0); Mean Corpuscular Hemoglobin 30.7 pg (27.0-31.0); Mean Platelet Volume 6.8 fL (7.4-10.4); Platelet Count 299 thou/uL (130-400); RBC Distribution Width 13.7 % (11.5-14.5); Red Blood Cell (RBC) Count 4.65 mill/uL (4.20-5.40); White Blood Cell (WBC) Count 8.4 thou/uL (4.8-10.8)
[2019-02-20] MEDS: Levothyroxine Sodium 50 MCG TAB PO SCH (06:20)
[2019-02-20 06:41] LABS: ALT (SGPT) 25 U/L (8-55); AST (SGOT) 21 U/L (5-34); Albumin 3.4 g/dL (3.4-4.8); Alkaline Phosphatase 74 U/L (40-150); Anion Gap 13 mmol/L (10-20); BUN (Urea Nitrogen) 20 mg/dL (9.8-20.1); Bilirubin, Total 0.9 mg/dL (0.2-1.2); Calc. Creatinine Clearance 33 mL/min (70-130); Calcium 8.8 mg/dL (7.8-10.44); Carbon Dioxide 26 mmol/L (23-31); Chloride 95 mmol/L (98-107); Estimated GFR-MDRD 54; Globulin 2.3 g/dL (2.4-3.5); Glucose 107 mg/dL (83-110); Potassium 3.6 mmol/L (3.5-5.1); Protein, Total 5.7 g/dL (6.0-8.3); Sodium 130 mmol/L (136-145)
[2019-02-20] MEDS: Lisinopril 20 MG TAB PO SCH (08:04)
[2019-02-20] MEDS: Furosemide 40 MG/4 ML VIAL SLOW IVP SCH (08:04)
[2019-02-20] MEDS ORDERED: Potassium Chloride 20 MEQ TAB PO SCH (12:00)
[2019-02-20] MEDS: Apixaban 2.5 MG TAB PO SCH ×2 (12:44→20:36)
--- NOTE | 2019-02-20 16:41 | CON ---
DATE OF CONSULTATION: 02/20/2019 SERVICE: Pulmonary Medicine. REASON FOR CONSULT: Respiratory failure. HISTORY OF PRESENT ILLNESS: The patient is an 88-year-old white female with past medical history significant for heart disease. She presented to the hospital with a gradual onset of shortness of breath over a couple of weeks. She also had lack of energy and a lack of appetite that preceded this. She did not understand why she was gaining so much weight because she was increasingly short-winded. She noted increasing swelling in her ankles, abdominal swelling, and also a minimal difficulty with breathing. That being said, more pronounced was the fatigue that she experienced. She presented to the emergency department, was discovered to be significantly volume overloaded. Overnight, she diuresed significantly. With this, she put out a lot of urine, but all of her respiratory issues, her fatigue, and lack of appetite have improved. This morning, she has a fantastic appetite. She does not remember having that for the last week if not longer. She specifically denies having much in the way of shortness of breath or dyspnea that limits her activity. She is not having any orthopnea or paroxysmal nocturnal dyspnea. PAST MEDICAL HISTORY: 1. Hypertension. 2. Hypothyroidism. 3. Anxiety disorder. 4. Chronic diastolic heart failure. PAST SURGICAL HISTORY: 1. Cataract extraction, bilateral. 2. Hysterectomy. FAMILY HISTORY: Noncontributory. SOCIAL HISTORY: Negative for tobacco or illicit drug use. She is a lifelong nonsmoker. She is independent in her ADLs. She drinks half glass of wine most days at lunch. She has no exposure to chemicals, dust, asbestos, or tuberculosis otherwise. ALLERGIES: NO KNOWN DRUG ALLERGIES. MEDICATIONS: List of her inpatient medications was reviewed. No specific updates were made at this time. REVIEW OF SYSTEMS: General; head, eyes, ears, nose, and throat; cardiovascular, respiratory, GI, , musculoskeletal, neurologic, and skin are negative, except as mentioned in the HPI. PHYSICAL EXAMINATION: VITAL SIGNS: Afebrile, pulse 68, blood pressure 114/64, respirations 16, saturation 93% on room air. GENERAL: The patient is awake and alert, in no apparent distress. LUNGS: Decent air entry on the left. There is decreased air entry on the right with dullness to percussion. No prolonged expiratory phase or wheezing is appreciated. HEART: Normal rate and regular. ABDOMEN: Soft, nontender, nondistended. Bowel sounds are positive. MUSCULOSKELETAL: No cyanosis or clubbing. There is a trace pitting in the bilateral ankles. : No [place]. NEUROLOGIC: Grossly nonfocal. LABORATORY DATA: Sodium has improved to 130. Basic metabolic profile and liver function studies are otherwise unremarkable. Total bilirubin is downtrending to 0.9. Potassium 3.6. Urinalysis is unremarkable. TSH was recently collected and was within the normal limits. Blood cultures x2 from a week ago were unremarkable to date. IMAGING STUDIES: CT of the chest demonstrates a large right-sided pleural effusion and a small left-sided pleural effusion. Interstitial edema is also noted. There is atelectasis much of the right lower lobe. ASSESSMENT: 1. Acute on chronic diastolic heart failure. 2. Pleural effusion. 3. Hypokalemia, resolved. DISCUSSION AND PLAN: We will continue replacing the potassium. Magnesium will be checked in the morning. I will get an INR to verify that the patient has good synthetic function of liver. Her urinalysis was reassuring without significant proteinuria. At this point, I simply recommend repeating a chest x-ray in an additional 24 hours. If tomorrow morning, the effusion is smaller, we can repeat an x-ray in the outpatient setting. Otherwise, if it persists or is enlarging, we can consider an inpatient thoracentesis tomorrow. Pulmonary Critical Care will continue to follow along while the patient remains in-house. My suspicion; however, is that we are dealing with a volume-mediated event, however. The patient will need to limit salt from her diet from this point forward. 70 minutes have been devoted to this patient in various activities. I personally reviewed all imaging studies and laboratory data noted within this document. For fifty percent of this time, I was interacting with the patient at the bedside or coordinating care with the care team. For the remainder of the time I was immediately available to the patient in the hospital unit. Job ID: [id number] MTDD
[2019-02-21] MEDS: Levothyroxine Sodium 50 MCG TAB PO SCH (05:39)
[2019-02-21 06:31] LABS: INR-International Normal Ratio 1.2; Prothrombin Time 14.8 SEC (12.0-14.7)
--- NOTE | 2019-02-21 07:52 | PDOC.PN ---
- Subjective Encounter Start Date: 02/20/19 Encounter Start Time: 09:00 Feeling well in general. Has been up and walking around without much difficulty. Denies SOB. Feels close to baseline. - Objective Resuscitation Status - Order Detail: 02/17/19 12:19 Resuscitation Status Routine Co-Sign Provider: Resuscitation Status: FULL: Full Resuscitation Discussed with: Patient Vital Signs & Weight: Vital Signs (12 hours) Temp Pulse Resp BP Pulse Ox 02/21/19 04:10 97.6 F 70 20 101/60 93 L 02/20/19 23:35 97.6 F 72 18 100/57 L 98 02/20/19 20:00 94 L Weight Admit Weight 122 lb Weight 113 lb 12.8 oz I&O: 02/20/19 02/21/19 02/22/19 06:59 06:59 06:59 Intake Total 965 1420 Output Total 1300 800 Balance -335 620 Result Diagrams: 02/20/19 05:38 02/20/19 05:38 Phys Exam - Physical Examination Constitutional: NAD Respiratory: no wheezing, no rales, no rhonchi Slightly diminished right base Cardiovascular: RRR, no significant murmur Gastrointestinal: soft, non-tender, no distention, positive bowel sounds Musculoskeletal: no edema Dx/Plan (1) Pleural effusion Code(s): J90 - PLEURAL EFFUSION, NOT ELSEWHERE CLASSIFIED Status: Acute (2) Atrial fibrillation with controlled ventricular rate Code(s): I48.91 - UNSPECIFIED ATRIAL FIBRILLATION Status: Chronic (3) HTN (hypertension) Code(s): I10 - ESSENTIAL (PRIMARY) HYPERTENSION Status: Chronic (4) Dysuria Code(s): R30.0 - DYSURIA Status: Acute (5) Hyponatremia with decreased serum osmolality Code(s): E87.1 - HYPO-OSMOLALITY AND HYPONATREMIA Status: Chronic (6) Hypothyroidism Code(s): E03.9 - HYPOTHYROIDISM, UNSPECIFIED Status: Chronic - Plan * She appears to be stable. She is breathing well with ambulation and feeling close to her baseline. * Pulmonary consulted. * Anticipate continued diuresis and monitoring of the effusion. * Has been placed back on Eliquis.
--- NOTE | 2019-02-21 09:18 | PRG ---
DATE OF SERVICE: 02/21/2019 SERVICE: Pulmonary Medicine. INTERVAL HISTORY: The patient is doing really well from respiratory standpoint. Breathing comfortably. She actually feels good enough to go home. She is not coughing. She does not bring up any sputum. Her energy is much improved, and her appetite is back to normal. She has no specific complaints. There were no overnight events. PHYSICAL EXAMINATION: VITAL SIGNS: Afebrile, pulse 72, blood pressure 101/60, respirations 20, and saturation 93% on room air. GENERAL: The patient is awake and alert, in no apparent distress. LUNGS: Excellent air entry without any prolonged expiratory phase or wheezing present. HEART: Normal rate and regular. ABDOMEN: Soft, nontender, nondistended. Bowel sounds are positive. MUSCULOSKELETAL: No cyanosis or clubbing. There is no pitting in the bilateral lower extremities. NEUROLOGIC: Grossly nonfocal. LABORATORY DATA: Magnesium 2.0. ASSESSMENT: 1. Acute on chronic diastolic heart failure. 2. Pleural effusion. 3. Hypokalemia, resolved. DISCUSSION AND PLAN: I will repeat the chest x-ray this morning. If it appears that this is decreasing in size. We will see her back in the outpatient setting in 2 to 3 weeks with a repeat chest x-ray to verify the whole thing goes away. If on the other hand, the patient has increasing or consistent amount of fluid, thoracentesis will be performed. Afterwards, the patient can still be discharged home, but we will see her back in clinic next week some time to follow up results of the studies. Either way, from a respiratory standpoint. She is stable for transition home, but that is pending a chest x-ray plus or minus a thoracentesis. Job ID: [id number]
[2019-02-21] MEDS: Apixaban 2.5 MG TAB PO SCH (09:39)
[2019-02-21] MEDS: Lisinopril 20 MG TAB PO SCH (09:39)
[2019-02-21] MEDS: Furosemide 40 MG/4 ML VIAL SLOW IVP SCH (09:39)
[2019-02-21] MEDS: Metamucil PACK PO SCH ×2 (09:40→12:43)
--- NOTE | 2019-02-21 10:33 | RAD ---
CHEST 2 VIEWS: Date: 02/21/19 HISTORY: Follow-up pleural effusion. COMPARISON: 02/17/19. FINDINGS: Small right pleural effusion decreasing from prior study. Very small left pleural effusion decreasing from prior study. Borderline cardiomegaly. Biapical pleural thickening. No confluent pneumonia. IMPRESSION: Decreasing bilateral pleural effusions, larger on the right side. No significant new process. POS: [facility]
[2019-02-21 12:55] VITALS: BP 105/57; TEMP 98.3
== END 2019-02-21 16:10 | disposition home health service (06) | DRG 291 ==
LOC: ERS 06:05 → ERHOLD 07:40 → 2NO 18:07
PROVIDERS: ADMIT Internal Medicine; ATTEND Internal Medicine
DX: I11.0 Hypertensive heart disease with heart failure (principal); J15.9 Unspecified bacterial pneumonia; E87.1 Hypo-osmolality and hyponatremia; E44.0 Moderate protein-calorie malnutrition; I24.8 Other forms of acute ischemic heart disease; E03.9 Hypothyroidism, unspecified; F41.9 Anxiety disorder, unspecified; I48.2 Chronic atrial fibrillation; I50.33 Acute on chronic diastolic (congestive) heart failure; R30.0 Dysuria; Z79.01 Long term (current) use of anticoagulants; Z90.710 Acquired absence of both cervix and uterus; Z79.899 Other long term (current) drug therapy; Z68.20 Body mass index [BMI] 20.0-20.9, adult
CPT/HCPCS: 36415; 71045; 71046; 71250; 80053; 81003; 82553; 83690; 83735; 83880; 83930; 83935; 84300; 84443; 84484; 85025; 85610; 93005; 93798; 96374; J1940

== ENCOUNTER 2019-03-03 08:48 | Outpatient (CLI) | payer MEDICARE ==
--- NOTE | 2019-03-03 09:09 | RAD ---
Chest one view HISTORY: Heart failure. COMPARISON: 02/21/2019. FINDINGS: Cardiac silhouette remains upper limits of normal in size. Pulmonary vasculature is more en gorged. Elevation of the right hemidiaphragm is stable. Small amount right pleural fluid. Patchy bibasilar infiltrates have progressed slightly. No evidence of pneumothorax. IMPRESSION: Slight interval radiographic worsening in appearance of CHF.
== END 2019-03-03 08:49 | disposition home or self-care (01) ==
LOC: BICRAD 08:48
PROVIDERS: ATTEND Internal Medicine
DX: I50.9 Heart failure, unspecified (principal); Z87.09 Personal history of other diseases of the respiratory system
CPT/HCPCS: 71046

== ENCOUNTER 2019-07-23 16:36 | Emergency (ER) | payer MEDICARE, OTHER ==
--- NOTE | 2019-07-23 17:12 | CT ---
CT Brain WO Con History: Fall. Laceration to eye Comparison: None. Findings: No acute hemorrhage or infarct. No midline shift or mass effect. Ventricular size and extra -axial CSF spaces are normal. Calvarium is intact. Paranasal sinuses and mastoids are relatively clear aside from the left anterior ethmoid sinuses. Globes are intact. Right periorbital soft tissue contusion. No retrobulbar hematoma although the glob es are not completely evaluated. Impression: No acute posttraumatic intracranial sequela. Incompletely evaluated right periorbital con tusion.
--- NOTE | 2019-07-23 17:58 | RAD ---
XR Ribs Rt>= 2 View W/PA CXR History: Fall. Injury Comparison: Chest radiograph March 03, 2019 Findings: Lungs are clear. No pneumothorax. No effusion. Nondisplaced right lateral fourth and fifth rib fractures. Impression: Nondisplaced right lateral fourth and fifth rib fractures. No underlying pneumothorax or significant pleural fluid.
[2019-07-23] MEDS ORDERED: Lidocaine 1% (PF) 30 ML VIAL ONE (18:01)
[2019-07-23] MEDS ORDERED: Acetaminophen 500 MG TAB ONE (18:28)
[2019-07-23] MEDS ORDERED: Triple Antibiotic Oint 1 GM Packet ONE (19:00)
== END 2019-07-23 19:24 | disposition home or self-care (01) ==
LOC: ERS 16:36
DX: S22.41XA Multiple fractures of ribs, right side, initial encounter for closed fracture (principal); S01.111A Laceration without foreign body of right eyelid and periocular area, initial encounter; E03.9 Hypothyroidism, unspecified; I10 Essential (primary) hypertension; I48.91 Unspecified atrial fibrillation; F41.9 Anxiety disorder, unspecified; Z79.01 Long term (current) use of anticoagulants; Z79.899 Other long term (current) drug therapy; W18.30XA Fall on same level, unspecified, initial encounter
CPT/HCPCS: 12011; 70450; J2001